=== PATIENT | female | born 1950 | race Caucasian/White ===

== ENCOUNTER 2016-06-10 03:52 | Emergency (ER) | payer OTHER, MEDICARE, MEDICAID ==
[~2016-06-10] VITALS: Ht 165.1 cm; Wt 70.3 kg
[2016-06-10 03:52] VITALS: BP 124/74; PULSE 64; RESP 16; TEMP 97.8; O2SAT 99
--- NOTE | 2016-06-10 03:52 | NUR ---
Placed in room 01 . Placed on surveillance monitor, blood pressure machine and pulse oximeter. To gown for exam. Side rails up. Report given to YOLANDE Malik.
--- NOTE | 2016-06-10 03:55 | NUR ---
Given juices and sandwich for low blood sugar.
--- NOTE | 2016-06-10 03:55 | NUR ---
# 20 gauge angiocath placed to right ac. Use of asceptic technique. Opsite placed over site. Blood return noted. Blood for lab drawn from site including blood cultures and lactic acid. Flushed with 10 cc of normal saline. No evidence of infiltration noted. Patient tolerated well.
--- NOTE | 2016-06-10 03:55 | NUR ---
Per EMS, around 0300, pt was found alerted in bed with a blood sugar of 40. Pt was given 1 mg of glucagon IM and at ER, BS was 61. Pt had a GCS of 14 with confusion, but was more alert per EMS. Will continue to monitor via property assessment monitor. No other injuries or complaints mentioned/noted. No distress noted.
[2016-06-10] MEDS ORDERED: NACL 0.9% 1,000 ML IV ONE (03:57)
[2016-06-10] MEDS ORDERED: DEXTROSE 50% JECT 50 ML DISP.SYRIN IVP ONE (04:00)
[2016-06-10 04:16] LABS: HEMOGLOBIN 13.3 g/dL (12.0-16.0); RED BLOOD CELL COUNT(AUTO) 5.14 MIL/uL (4.2-6.2); WHITE BLOOD COUNT (AUTO) 9.3 K/uL (4.8-10.8)
[2016-06-10 04:17] LABS: BASOPHILS # (AUTO) 0.1 K/uL (0.0-0.2); BASOPHILS % (AUTO) 0.8 % (0.0-2.0); EOSINOPHILS # (AUTO) 0.1 K/uL (0.0-0.4); EOSINOPHILS % (AUTO) 1.6 % (0.0-4.0); HEMATOCRIT 41.3 % (36-48); LYMPHOCYTES # (AUTO) 2.4 K/uL (1.0-5.5); LYMPHOCYTES % (AUTO) 26.3 % (20.5-51.5); MEAN CORPUSCULAR HEMOGLOBIN 26 pg (27-31); MEAN CORPUSCULAR HGB CONC 32 % (32-36); MEAN CORPUSCULAR VOLUME 80 fL (79.0-98.0); MONOCYTES # (AUTO) 0.5 K/uL (0.0-1.0); MONOCYTES % (AUTO) 5.2 % (1.7-9.3); NEUTROPHILS # (AUTO) 6.2 K/uL (1.8-7.7); NEUTROPHILS % (AUTO) 66.1 % (40.0-70.0); PLATELET COUNT (AUTO) 174 K/uL (130-430); RED CELL DISTRIBUTION WIDTH 14.5 % (9.0-15.0)
[2016-06-10 04:32] LABS: CALCIUM 9.2 mg/dL (8.4-11.0); POTASSIUM 3.5 mmol/L (3.5-5.1)
[2016-06-10 04:37] LABS: ALBUMIN 3.8 g/dL (3.4-4.8); TOTAL BILIRUBIN 0.3 mg/dL (0.0-1.0); TOTAL PROTEIN, SERUM 7.2 g/dL (6.4-8.3)
--- NOTE | 2016-06-10 05:30 | NUR ---
Dr. Meehan stated he does not require urine for analysis.
--- NOTE | 2016-06-10 06:00 | NUR ---
Pt is resting comfortably in bed. AAOX4. VSS. Will continue to monitor. No distress noted.
--- NOTE | 2016-06-10 06:15 | NUR ---
Pt ambulated to end of ER and back to bed without issues. Dr. Meehan made aware.
[2016-06-10 06:58] VITALS: BP 129/56; PULSE 62; RESP 16; TEMP 97.8; O2SAT 95
--- NOTE | 2016-06-10 06:58 | NUR ---
Patient given written and verbal discharge instructions and verbalizes understanding. ER MD discussed with patient the results and treatment provided. Patient in stable condition. ID arm band removed. IV catheter removed intact and dressing applied, no active bleeding. Patient educated on pain management and to follow up with PMD. Pain Scale 0/10. Opportunity for questions provided and answered.
== END 2016-06-10 06:58 | disposition home or self-care (01) ==
LOC: SED 03:52
DX: E11.649 Type 2 diabetes mellitus with hypoglycemia without coma (principal); Z88.0 Allergy status to penicillin; Z88.5 Allergy status to narcotic agent; Z88.6 Allergy status to analgesic agent
CPT/HCPCS: 36415; 80053; 82962; 83690; 85025; 93005; 96361; 96374; 99285; J7030

== ENCOUNTER 2018-09-01 05:43 | Emergency (ER) | payer OTHER, BC ==
[~2018-09-01] VITALS: Ht 162.6 cm; Wt 90.7 kg
[2018-09-01 05:43] VITALS: BP_SYST 133
[2018-09-01] MEDS ORDERED: DEXTROSE 50% JECT 50 ML DISP.SYRIN IVP ONE (06:00)
[2018-09-01 06:18] LABS: CALCIUM 9.9 mg/dL (8.4-11.0); CREATININE 0.86 mg/dL (0.55-1.30); POTASSIUM 4.1 mmol/L (3.5-5.1)
[2018-09-01 06:23] LABS: ALBUMIN 3.8 g/dL (3.4-4.8); TOTAL BILIRUBIN 0.3 mg/dL (0.0-1.0)
[2018-09-01 06:27] LABS: BASOPHILS % (AUTO) 0.5 % (0.0-2.0); EOSINOPHILS # (AUTO) 0.1 K/uL (0.0-0.4); EOSINOPHILS % (AUTO) 2.1 % (0.0-4.0); HEMATOCRIT 41.6 % (36-48); HEMOGLOBIN 13.6 g/dL (12.0-16.0); LYMPHOCYTES # (AUTO) 2.1 K/uL (1.0-5.5); LYMPHOCYTES % (AUTO) 30.6 % (20.5-51.5); MEAN CORPUSCULAR HEMOGLOBIN 26 pg (27-31); MEAN CORPUSCULAR HGB CONC 33 % (32-36); MEAN CORPUSCULAR VOLUME 81 fL (79.0-98.0); MONOCYTES # (AUTO) 0.5 K/uL (0.0-1.0); MONOCYTES % (AUTO) 6.4 % (1.7-9.3); NEUTROPHILS # (AUTO) 4.2 K/uL (1.8-7.7); NEUTROPHILS % (AUTO) 60.4 % (40.0-70.0); PLATELET COUNT (AUTO) 179 K/uL (130-430); RED BLOOD CELL COUNT(AUTO) 5.16 MIL/uL (4.2-6.2); RED CELL DISTRIBUTION WIDTH 15.5 % (9.0-15.0)
[2018-09-01 08:25] VITALS: BP_SYST 139
== END 2018-09-01 08:25 | disposition home or self-care (01) ==
LOC: SED 05:43
DX: E11.649 Type 2 diabetes mellitus with hypoglycemia without coma (principal); Z86.79 Personal history of other diseases of the circulatory system; Z88.0 Allergy status to penicillin; Z88.6 Allergy status to analgesic agent; Z88.8 Allergy status to other drugs, medicaments and biological substances; Z95.1 Presence of aortocoronary bypass graft
CPT/HCPCS: 36415; 71045; 80053; 81002; 82962; 84484; 85025; 93005; 96374; 99284